=== PATIENT | male | born 1995 ===

== ENCOUNTER 2020-01-23 23:43 | Observation (INO) | payer OTHER ==
[2020-01-23] MEDS ORDERED: Sodium Chloride 0.9% 1,000 ML IV ONE (23:49)
[2020-01-23] MEDS: Sodium Chloride 0.9% 10 ML Syringe FLUSH PRN (23:59)
[2020-01-24] MEDS ORDERED: Diphtheria,Pertussis(Acell),Tetanus Vaccine 0.5 ML Syringe IM ONE
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
[2020-01-24] MEDS ORDERED: OLANZapine 10 MG Vial ONE (00:49)
[2020-01-24 00:50] LABS: CHLORIDE,CL 105 mmol/L (98-107); SODIUM,NA 144 mmol/L (136-145)
[2020-01-24 00:53] LABS: ANION GAP 23.6 mmol/L (10-20)
[2020-01-24 00:58] LABS: BARBITURATE SCREEN,URINE NEGATIVE (NEGATIVE); BENZODIAZEPINES SCREEN,URINE NEGATIVE (NEGATIVE); EDDP,URINE SCREEN NEGATIVE (NEGATIVE); METHAMPHETAMINE SCREEN, URINE NEGATIVE (NEGATIVE); TCA SCREEN,URINE NEGATIVE (NEGATIVE); THC SCREEN,URINE 50 NG/ML NEGATIVE (NEGATIVE)
[2020-01-24] MEDS ORDERED: LORazepam 2 MG/ML SDV ONE (01:35)
[2020-01-24] MEDS ORDERED: Ondansetron 4 MG/2 ML SDV IVPUSH ONE (06:39)
[2020-01-24] MEDS ORDERED: Sodium Chloride 0.9% 1,000 ML IV ONE (06:39)
[2020-01-24] MEDS: Sodium Chloride 0.9% 10 ML Syringe FLUSH PRN (07:02)
--- NOTE | 2020-01-24 10:31 | CT ---
[id number] CT/CT Cervical Spine WO IV Exam: CT Cervical Spine WO IV Clinical Data: TRAUMA COMPARISON: NO PREVIOUS SIMILAR EXAM IS AVAILABLE FINDINGS: No fracture or subluxation is seen The prevertebral soft tissues are unremarkable There is a normal appearance of the C1-C2 articulation IMPRESSION: NO FRACTURE OR SUBLUXATION Edward Veliz MD 01/24/20 1030 Thank you for allowing us to participate in the care of your patient.
--- NOTE | 2020-01-24 11:43 | CT ---
[id number] CT/CT Head WO IV EXAM: CT Head WO IV CLINICAL DATA: CHANGE IN MENTAL STATUS TRAUMA COMPARISON: NO PREVIOUS SIMILAR EXAM IS AVAILABLE FOR COMPARISON. FINDINGS: Motion artifact limits image detail There is no mass or mass effect. There is no hemorrhage or hydrocephalus. There are no extra-axial fluid collections. There are no sites of abnormal attenuation. IMPRESSION: LIMITED STUDY MOTION ARTIFACT NO PLAIN CT EVIDENCE OF ACUTE INTRACRANIAL PROCESS. Edward Veliz MD 01/24/20 1141 Thank you for allowing us to participate in the care of your patient.
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
== END 2020-01-24 08:56 ==
LOC: VM.ED 23:43 → VM.MS 01-24 01:51
PROVIDERS: ADMIT Physician Assistant; ATTEND Physician Assistant
DX: F10.10 Alcohol abuse, uncomplicated (principal); Y90.8 Blood alcohol level of 240 mg/100 ml or more
CPT/HCPCS: 36415; 70450; 72125; 80053; 80305; 80307; 81001; 83735; 84443; 85025; 85610; 86140; J2060; J2405; J3490; J7030